=== PATIENT | female | born 1965 | race African-American/Black ===

== ENCOUNTER 2022-07-17 16:43 | Inpatient (IN) ==
[2022-07-17] MEDS ORDERED: BENZOCAINE/BUTAMBEN/TETRACAINE SPRAY 20 GM CAN TOP ONE (17:58)
[2022-07-17] MEDS ORDERED: CLINDAMYCIN INJ 900 MG/50 ML PREMIX IV ONE (18:12)
[2022-07-17] MEDS ORDERED: DESFLURANE 1 UNIT/15 MINUTE INH ONE ×2 (18:13→20:08)
[2022-07-17] MEDS ORDERED: fentaNYL 100 MCG/2 ML VIAL ONE (18:13)
[2022-07-17] MEDS ORDERED: LIDOCAINE 2% 5 ML VIAL ONE (18:13)
[2022-07-17] MEDS ORDERED: propofoL 200 MG/20 ML VIAL IV ONE (18:13)
[2022-07-17] MEDS ORDERED: MIDAZOLAM 2 MG/2 ML VIAL ONE ×2 (18:13→20:07)
[2022-07-17] MEDS ORDERED: ROCURONIUM 50 MG/5 ML VIAL IV ONE (18:13)
[2022-07-17] MEDS ORDERED: ePHEDrine 50 MG/ML VIAL ONE (19:38)
[2022-07-17] MEDS ORDERED: ONDANSETRON 4 MG/2 ML VIAL IV PRN (20:38)
[2022-07-17] MEDS ORDERED: PROMETHAZINE 25 MG/1 ML VIAL IM PRN (20:38)
[2022-07-17] MEDS ORDERED: PHENYLEPHRINE DRIP 40 MG/250 ML PREMIX IV PRN (20:43)
[2022-07-17] MEDS ORDERED: PHENYLEPHRINE DRIP 40 MG/250 ML PREMIX IV ONE (20:43)
[2022-07-17] MEDS ORDERED: LACTATED RINGERS 1,000 ML IV ONE (20:47)
[2022-07-17 21:21] LABS: ABG Base Excess -1.4 MMOL/L (-2.5-2.5); ABG HCO3 23.3 MMOL/L (20-26); ABG Oxygen Saturation 99.9 % (95-100); ABG PCO2 38.5 MM HG (35-48); ABG PH 7.389 (7.35-7.45); ABG TCO2 19.9 MMOL/L (23-27); Basophils % 0.4 % (0.0-0.8); Eosinophils % 0.1 % (0.00-10.9); Hematocrit 44.6 VOL% (35.7-47.0); Hemoglobin 14.3 GM/DL (12.0-16.0); Immature Granulocytes % 0.2 %; Immature Granulocytes Absolute 0.02 #; Lymphocytes # 1.7 10*3/uL (1.4-4.0); Lymphocytes % 17.1 % (21.3-54.2); Mean Corpuscular HGB Conc 32.1 GM/DL (32-36); Mean Corpuscular Volume 93.3 FL (87-102); Mean Platelet Volume 12.2 FL (9.6-12.0); Monocytes # 0.5 10*3/uL (0.11-0.8); Neutrophils % 77.2 % (38.7-73.9); Platelet Count 240 T/CUMM (130-400); Red Blood Count 4.78 MC/CUMM (3.8-5.5); Red Cell Distribution Width 14.3 % (9.3-17.3); White Blood Count 9.9 T/CUMM (4-12)
[2022-07-17] MEDS: HYDROmorphone 1 MG/1 ML SYRINGE IV PRN (21:25)
[2022-07-17] MEDS: PANTOPRAZOLE 40 MG VIAL IV SCH (21:32)
[2022-07-17] MEDS: ENOXAPARIN 40 MG/0.4 ML SYRINGE SUBCUT SCH (21:33)
[2022-07-17] MEDS: PIPERACILLIN/TAZOBACTAM 3,375 MG in SODIUM CHLORIDE 0.9% 100 ML IV SCH (21:34)
[2022-07-17 21:35] LABS: Bacteria,Urine Occasional /HPF (Few); Mucus,Urine Occasional /LPF (Occasional); Protein,Urine 100 mg/dL (Negative); RBC,Urine 5 /HPF (0-4); Squamous Epithelial Cell,Urine Many /HPF (0-10); Urine Appearance Clear (Clear); Urine Color Yellow (Yellow)
[2022-07-17 21:36] LABS: Bilirubin,Urine Negative (Negative); Blood, Urine Trace mg/dL (Negative); Glucose,Urine (UA) Negative (Negative); Ketones,Urine Negative (Negative); Nitrite,Urine Negative (Negative); Urine Urobilinogen 0.2 eU/dL (<2.0)
[2022-07-17 21:42] LABS: Albumin 3.2 G/DL (3.4-5.0); Bilirubin,Total 0.6 MG/DL (0.20-1.00); Calcium 9.3 MG/DL (8.5-10.1); Osmolality,Calculated 296.1 MOS/KG (273-304); Potassium 3.2 MMOL/L (3.5-5.1); Total Protein 7.9 G/DL (6.4-8.2)
[2022-07-17] MEDS: LACTATED RINGERS 1,000 ML IV SCH (22:05)
[2022-07-17] MEDS: POTASSIUM CHLORIDE RIDER 20 MEQ/100 ML PREMIX IV PRN (23:55)
[2022-07-18] MEDS ORDERED: LACTATED RINGERS 500 ML IV ONE ×2 (00:30→06:47)
[2022-07-18] MEDS: LACTATED RINGERS 1,000 ML IV SCH ×6 (00:34→20:37)
[2022-07-18] MEDS: POTASSIUM CHLORIDE RIDER 20 MEQ/100 ML PREMIX IV PRN ×2 (00:50→04:56)
[2022-07-18] MEDS: HYDROmorphone 1 MG/1 ML SYRINGE IV PRN ×2 (03:43→18:48)
[2022-07-18 04:07] LABS: ABG Base Excess -0.9 MMOL/L (-2.5-2.5); ABG HCO3 23.7 MMOL/L (20-26); ABG Oxygen Saturation 99.5 % (95-100); ABG PCO2 36.6 MM HG (35-48); ABG PH 7.411 (7.35-7.45); ABG TCO2 20.2 MMOL/L (23-27)
[2022-07-18 04:09] LABS: Basophils % 0.4 % (0.0-0.8); Eosinophils % 0.1 % (0.00-10.9); Hematocrit 40.3 VOL% (35.7-47.0); Hemoglobin 13.1 GM/DL (12.0-16.0); Immature Granulocytes % 0.1 %; Immature Granulocytes Absolute 0.01 #; Lymphocytes # 0.5 10*3/uL (1.4-4.0); Lymphocytes % 6.1 % (21.3-54.2); Mean Corpuscular HGB Conc 32.5 GM/DL (32-36); Mean Corpuscular Volume 92.6 FL (87-102); Mean Platelet Volume 12.2 FL (9.6-12.0); Monocytes # 0.9 10*3/uL (0.11-0.8); Monocytes % 10.7 % (1.7-12.7); Neutrophils % 82.6 % (38.7-73.9); Platelet Count 180 T/CUMM (130-400); Red Blood Count 4.35 MC/CUMM (3.8-5.5); Red Cell Distribution Width 14.3 % (9.3-17.3); White Blood Count 8.4 T/CUMM (4-12)
[2022-07-18 04:33] LABS: Band Neutrophils 6 % (0-10); Lymphocytes 8 % (20-55); Platelet Estimate Adequate; Total Cells Counted 100
[2022-07-18 04:34] LABS: Alanine Aminotransferase 14 U/L (13-56); Albumin 2.9 G/DL (3.4-5.0); Alkaline Phosphatase 58 U/L (45-117); Aspartate Amino Transferase 11 U/L (0-37); Blood Urea Nitrogen 43 MG/DL (7-18); Carbon Dioxide 25 MMOL/L (21-32); Chloride 109 MMOL/L (98-107); Glucose 176 MG/DL (74-106); Potassium 3.6 MMOL/L (3.5-5.1); Sodium 143 MMOL/L (136-145); Total Protein 7.1 G/DL (6.4-8.2)
[2022-07-18] MEDS: PIPERACILLIN/TAZOBACTAM 3,375 MG in SODIUM CHLORIDE 0.9% 100 ML IV SCH ×3 (04:57→20:21)
[2022-07-18] MEDS: INSULIN LISPRO 100 UNIT/ML SUBCUT SCH ×4 (05:00→17:16)
[2022-07-18] MEDS ORDERED: LACTATED RINGERS 1,000 ML IV ONE (08:18)
[2022-07-18] MEDS ORDERED: ROCURONIUM 50 MG/5 ML VIAL IV ONE ×2 (08:42→10:15)
[2022-07-18] MEDS ORDERED: PHENYLEPHRINE 1 MG/10 ML SYRINGE IV ONE (08:42)
[2022-07-18] MEDS ORDERED: MIDAZOLAM 2 MG/2 ML VIAL ONE ×2 (08:43→10:54)
[2022-07-18] MEDS ORDERED: SEVOFLURANE 1 UNIT/15 MINUTE INH ONE ×6 (10:15→10:44)
[2022-07-18] MEDS ORDERED: KETAMINE 500 MG/10 ML VIAL ONE (10:17)
[2022-07-18] MEDS ORDERED: propofoL 200 MG/20 ML VIAL IV ONE (10:18)
[2022-07-18] MEDS ORDERED: ePHEDrine 50 MG/ML VIAL ONE (10:19)
[2022-07-18] MEDS: ENOXAPARIN 40 MG/0.4 ML SYRINGE SUBCUT SCH (20:21)
[2022-07-18] MEDS: PANTOPRAZOLE 40 MG VIAL IV SCH (20:21)
[2022-07-19] MEDS: INSULIN LISPRO 100 UNIT/ML SUBCUT SCH ×5 (00:34→23:48)
[2022-07-19] MEDS: LACTATED RINGERS 1,000 ML IV SCH ×3 (01:24→13:46)
[2022-07-19 04:02] LABS: ABG Base Excess 1.2 MMOL/L (-2.5-2.5); ABG HCO3 25.5 MMOL/L (20-26); ABG Oxygen Saturation 99.4 % (95-100); ABG PCO2 39.8 MM HG (35-48); ABG PH 7.418 (7.35-7.45)
[2022-07-19 04:04] LABS: Basophils # 0.1 10*3/uL (0.0-0.2); Basophils % 0.4 % (0.0-0.8); Eosinophils % 0.2 % (0.00-10.9); Hematocrit 33.8 VOL% (35.7-47.0); Immature Granulocytes % 0.3 %; Immature Granulocytes Absolute 0.03 #; Lymphocytes # 1.9 10*3/uL (1.4-4.0); Lymphocytes % 16.1 % (21.3-54.2); Mean Corpuscular HGB Conc 32.5 GM/DL (32-36); Mean Corpuscular Volume 93.1 FL (87-102); Monocytes # 1.1 10*3/uL (0.11-0.8); Monocytes % 9.8 % (1.7-12.7); Neutrophils % 73.2 % (38.7-73.9); Platelet Count 156 T/CUMM (130-400); Red Blood Count 3.63 MC/CUMM (3.8-5.5); Red Cell Distribution Width 14.6 % (9.3-17.3); White Blood Count 11.5 T/CUMM (4-12)
[2022-07-19 04:22] LABS: Bilirubin,Total 0.4 MG/DL (0.20-1.00); Calcium 7.8 MG/DL (8.5-10.1); Potassium 3.6 MMOL/L (3.5-5.1); Total Protein 5.9 G/DL (6.4-8.2)
[2022-07-19 04:25] LABS: Band Neutrophils 14 % (0-10); Hypochromia Slight; Lymphocytes 10 % (20-55); Microcytosis Slight; Total Cells Counted 100
[2022-07-19] MEDS: PIPERACILLIN/TAZOBACTAM 3,375 MG in SODIUM CHLORIDE 0.9% 100 ML IV SCH ×2 (05:30→13:50)
[2022-07-19] MEDS: POTASSIUM CHLORIDE RIDER 20 MEQ/100 ML PREMIX IV PRN (05:30)
[2022-07-19] MEDS: PANTOPRAZOLE 40 MG VIAL IV SCH (20:53)
[2022-07-19] MEDS: CEFEPIME 1,000 MG in SODIUM CHLORIDE 0.9% 100 ML IV SCH (20:53)
[2022-07-19] MEDS: ENOXAPARIN 40 MG/0.4 ML SYRINGE SUBCUT SCH (20:53)
[2022-07-20] MEDS: CEFEPIME 1,000 MG in SODIUM CHLORIDE 0.9% 100 ML IV SCH ×4 (02:10→20:59)
[2022-07-20 03:58] LABS: ABG Base Excess 1.8 MMOL/L (-2.5-2.5); ABG Oxygen Saturation 99.4 % (95-100); ABG PCO2 39.9 MM HG (35-48); ABG PH 7.425 (7.35-7.45); ABG TCO2 23.5 MMOL/L (23-27)
[2022-07-20 04:05] LABS: Basophils % 0.2 % (0.0-0.8); Eosinophils # 0.1 10*3/uL (0.0-0.87); Eosinophils % 0.6 % (0.00-10.9); Hematocrit 33.5 VOL% (35.7-47.0); Hemoglobin 10.7 GM/DL (12.0-16.0); Immature Granulocytes % 0.4 %; Immature Granulocytes Absolute 0.05 #; Lymphocytes # 2.7 10*3/uL (1.4-4.0); Lymphocytes % 20.4 % (21.3-54.2); Mean Corpuscular HGB Conc 31.9 GM/DL (32-36); Mean Corpuscular Volume 94.6 FL (87-102); Mean Platelet Volume 12.2 FL (9.6-12.0); Monocytes % 7.5 % (1.7-12.7); Neutrophils % 70.9 % (38.7-73.9); Platelet Count 156 T/CUMM (130-400); Red Blood Count 3.54 MC/CUMM (3.8-5.5); Red Cell Distribution Width 14.3 % (9.3-17.3); White Blood Count 13.1 T/CUMM (4-12)
[2022-07-20 04:18] LABS: Bilirubin,Total 0.4 MG/DL (0.20-1.00); Osmolality,Calculated 287.1 MOS/KG (273-304); Potassium 3.5 MMOL/L (3.5-5.1)
[2022-07-20] MEDS: POTASSIUM CHLORIDE RIDER 20 MEQ/100 ML PREMIX IV PRN (05:48)
[2022-07-20] MEDS: INSULIN LISPRO 100 UNIT/ML SUBCUT SCH ×4 (05:58→23:40)
[2022-07-20] MEDS: POTASSIUM CHLORIDE RIDER 10 MEQ/100 ML PREMIX IV PRN (07:40)
[2022-07-20 10:47] LABS: ABG Base Excess 1.5 MMOL/L (-2.5-2.5); ABG HCO3 25.8 MMOL/L (20-26); ABG Oxygen Saturation 99.2 % (95-100); ABG PCO2 42.2 MM HG (35-48); ABG PH 7.405 (7.35-7.45); ABG TCO2 23.8 MMOL/L (23-27)
[2022-07-20] MEDS: HYDROmorphone 1 MG/1 ML SYRINGE IV PRN ×2 (11:06→18:38)
[2022-07-20] MEDS ORDERED: DEXMEDETOMIDINE 200 MCG in SODIUM CHLORIDE 0.9% 48 ML IV PRN (11:18)
[2022-07-20 12:58] LABS: Basophils % 0.3 % (0.0-0.8); Eosinophils # 0.1 10*3/uL (0.0-0.87); Eosinophils % 0.9 % (0.00-10.9); Hematocrit 32.9 VOL% (35.7-47.0); Hemoglobin 10.4 GM/DL (12.0-16.0); Immature Granulocytes % 0.4 %; Immature Granulocytes Absolute 0.05 #; Lymphocytes # 2.6 10*3/uL (1.4-4.0); Lymphocytes % 22.2 % (21.3-54.2); Mean Corpuscular HGB Conc 31.6 GM/DL (32-36); Mean Corpuscular Volume 94.8 FL (87-102); Monocytes # 1.2 10*3/uL (0.11-0.8); Monocytes % 10.3 % (1.7-12.7); Neutrophils % 65.9 % (38.7-73.9); Platelet Count 160 T/CUMM (130-400); Red Blood Count 3.47 MC/CUMM (3.8-5.5); Red Cell Distribution Width 14.2 % (9.3-17.3); White Blood Count 11.7 T/CUMM (4-12)
[2022-07-20] MEDS ORDERED: LACTATED RINGERS 1,000 ML IV ONE (13:05)
[2022-07-20] MEDS ORDERED: MIDAZOLAM 100 MG in SODIUM CHLORIDE 0.9% 80 ML IV PRN (13:07)
[2022-07-20 13:14] LABS: Potassium 3.8 MMOL/L (3.5-5.1); Risk Ratio 3.62; VLDL Cholesterol 19.6 MG/DL
[2022-07-20] MEDS: ENOXAPARIN 40 MG/0.4 ML SYRINGE SUBCUT SCH (20:59)
[2022-07-20] MEDS: PANTOPRAZOLE 40 MG VIAL IV SCH (20:59)
[2022-07-21] MEDS: CEFEPIME 1,000 MG in SODIUM CHLORIDE 0.9% 100 ML IV SCH ×3 (01:54→18:43)
[2022-07-21 03:39] LABS: ABG Base Excess -0.4 MMOL/L (-2.5-2.5); ABG HCO3 24.1 MMOL/L (20-26); ABG Oxygen Saturation 99.5 % (95-100); ABG PCO2 38.6 MM HG (35-48); ABG PH 7.404 (7.35-7.45); ABG TCO2 21.7 MMOL/L (23-27)
[2022-07-21 03:43] LABS: Basophils % 0.3 % (0.0-0.8); Eosinophils % 0.1 % (0.00-10.9); Hematocrit 34.5 VOL% (35.7-47.0); Hemoglobin 10.8 GM/DL (12.0-16.0); Immature Granulocytes % 0.5 %; Immature Granulocytes Absolute 0.05 #; Lymphocytes # 1.8 10*3/uL (1.4-4.0); Lymphocytes % 19.2 % (21.3-54.2); Mean Corpuscular HGB Conc 31.3 GM/DL (32-36); Mean Platelet Volume 11.9 FL (9.6-12.0); Monocytes # 1.1 10*3/uL (0.11-0.8); Monocytes % 11.9 % (1.7-12.7); Platelet Count 168 T/CUMM (130-400); Red Blood Count 3.63 MC/CUMM (3.8-5.5); Red Cell Distribution Width 13.9 % (9.3-17.3); White Blood Count 9.5 T/CUMM (4-12)
[2022-07-21 04:02] LABS: Calcium 8.5 MG/DL (8.5-10.1); Osmolality,Calculated 289.8 MOS/KG (273-304); Phosphorous 3.1 MG/DL (2.5-4.9); Potassium 3.9 MMOL/L (3.5-5.1)
[2022-07-21 04:27] LABS: Albumin 1.9 G/DL (3.4-5.0); Bilirubin,Total 0.7 MG/DL (0.20-1.00); Calcium 8.5 MG/DL (8.5-10.1); Osmolality,Calculated 290.7 MOS/KG (273-304); Potassium 3.9 MMOL/L (3.5-5.1); Total Protein 6.7 G/DL (6.4-8.2)
[2022-07-21] MEDS: INSULIN LISPRO 100 UNIT/ML SUBCUT SCH ×3 (05:41→18:19)
[2022-07-21] MEDS: HYDROmorphone 1 MG/1 ML SYRINGE IV PRN ×2 (14:05→22:30)
[2022-07-21] MEDS: PANTOPRAZOLE 40 MG VIAL IV SCH (21:15)
[2022-07-21] MEDS: ENOXAPARIN 40 MG/0.4 ML SYRINGE SUBCUT SCH (21:15)
[2022-07-22] MEDS: INSULIN LISPRO 100 UNIT/ML SUBCUT SCH ×4 (00:30→17:22)
[2022-07-22] MEDS: CEFEPIME 1,000 MG in SODIUM CHLORIDE 0.9% 100 ML IV SCH ×4 (00:50→17:26)
[2022-07-22 03:46] LABS: ABG Base Excess 1.2 MMOL/L (-2.5-2.5); ABG HCO3 25.5 MMOL/L (20-26); ABG Oxygen Saturation 98.9 % (95-100); ABG PCO2 43.9 MM HG (35-48); ABG PH 7.388 (7.35-7.45); ABG TCO2 23.7 MMOL/L (23-27)
[2022-07-22 03:47] LABS: Basophils % 0.4 % (0.0-0.8); Eosinophils # 0.1 10*3/uL (0.0-0.87); Eosinophils % 0.9 % (0.00-10.9); Hematocrit 34.8 VOL% (35.7-47.0); Hemoglobin 10.9 GM/DL (12.0-16.0); Immature Granulocytes % 0.7 %; Immature Granulocytes Absolute 0.07 #; Lymphocytes # 2.2 10*3/uL (1.4-4.0); Lymphocytes % 20.8 % (21.3-54.2); Mean Corpuscular HGB Conc 31.3 GM/DL (32-36); Mean Corpuscular Volume 95.9 FL (87-102); Mean Platelet Volume 11.9 FL (9.6-12.0); Monocytes # 1.8 10*3/uL (0.11-0.8); Monocytes % 17.5 % (1.7-12.7); Neutrophils % 59.7 % (38.7-73.9); Platelet Count 181 T/CUMM (130-400); Red Blood Count 3.63 MC/CUMM (3.8-5.5); Red Cell Distribution Width 13.8 % (9.3-17.3); White Blood Count 10.4 T/CUMM (4-12)
[2022-07-22 04:00] LABS: Calcium 8.4 MG/DL (8.5-10.1); Osmolality,Calculated 294.4 MOS/KG (273-304)
[2022-07-22] MEDS: SODIUM CHLORIDE 0.45% 1,000 ML IV SCH ×3 (10:11→20:11)
[2022-07-22] MEDS: PANTOPRAZOLE 40 MG VIAL IV SCH (21:03)
[2022-07-22] MEDS: ENOXAPARIN 40 MG/0.4 ML SYRINGE SUBCUT SCH (21:04)
[2022-07-23] MEDS: INSULIN LISPRO 100 UNIT/ML SUBCUT SCH ×4 (01:55→18:26)
[2022-07-23] MEDS: HYDROmorphone 1 MG/1 ML SYRINGE IV PRN (02:23)
[2022-07-23] MEDS: CEFEPIME 1,000 MG in SODIUM CHLORIDE 0.9% 100 ML IV SCH ×2 (02:24→05:28)
[2022-07-23 06:02] LABS: Basophils # 0.1 10*3/uL (0.0-0.2); Basophils % 0.5 % (0.0-0.8); Eosinophils # 0.2 10*3/uL (0.0-0.87); Eosinophils % 2.2 % (0.00-10.9); Hematocrit 32.3 VOL% (35.7-47.0); Hemoglobin 10.1 GM/DL (12.0-16.0); Immature Granulocytes Absolute 0.11 #; Lymphocytes # 3.3 10*3/uL (1.4-4.0); Lymphocytes % 30.5 % (21.3-54.2); Mean Corpuscular HGB Conc 31.3 GM/DL (32-36); Mean Corpuscular Volume 97.3 FL (87-102); Mean Platelet Volume 11.7 FL (9.6-12.0); Monocytes # 1.6 10*3/uL (0.11-0.8); Monocytes % 14.9 % (1.7-12.7); Neutrophils % 50.9 % (38.7-73.9); Platelet Count 207 T/CUMM (130-400); Red Blood Count 3.32 MC/CUMM (3.8-5.5); Red Cell Distribution Width 13.9 % (9.3-17.3); White Blood Count 10.9 T/CUMM (4-12)
[2022-07-23 06:20] LABS: Calcium 8.4 MG/DL (8.5-10.1); Osmolality,Calculated 289.6 MOS/KG (273-304); Potassium 3.5 MMOL/L (3.5-5.1)
[2022-07-23] MEDS: SODIUM CHLORIDE 0.45% 1,000 ML IV SCH ×2 (06:25→17:10)
[2022-07-23] MEDS ORDERED: DEXTROSE 10% 250 ML BAG IV PRN (06:32)
[2022-07-23] MEDS ORDERED: GLUCAGON 1 MG VIAL IV PRN (06:32)
[2022-07-23] MEDS ORDERED: MULTIVITAMIN INJ 10 ML in AMINO ACIDS/DEXT/LYTES 5-15% 2,000 ML IV SCH (17:00)
[2022-07-23] MEDS ORDERED: DEXTROSE 10% 1,000 ML IV PRN (17:00)
[2022-07-23] MEDS: ENOXAPARIN 40 MG/0.4 ML SYRINGE SUBCUT SCH (20:24)
[2022-07-23] MEDS: PANTOPRAZOLE 40 MG VIAL IV SCH (20:25)
[2022-07-24] MEDS: INSULIN LISPRO 100 UNIT/ML SUBCUT SCH ×5 (00:48→23:28)
[2022-07-24] MEDS: HYDROmorphone 1 MG/1 ML SYRINGE IV PRN ×2 (00:55→16:24)
[2022-07-24] MEDS: SODIUM CHLORIDE 0.45% 1,000 ML IV SCH ×2 (04:24→22:14)
[2022-07-24 06:21] LABS: Basophils % 0.4 % (0.0-0.8); Eosinophils # 0.2 10*3/uL (0.0-0.87); Eosinophils % 2.2 % (0.00-10.9); Hematocrit 29.5 VOL% (35.7-47.0); Hemoglobin 9.3 GM/DL (12.0-16.0); Immature Granulocytes % 1.2 %; Immature Granulocytes Absolute 0.12 #; Lymphocytes # 2.8 10*3/uL (1.4-4.0); Mean Corpuscular HGB Conc 31.5 GM/DL (32-36); Mean Corpuscular Volume 96.7 FL (87-102); Mean Platelet Volume 11.5 FL (9.6-12.0); Monocytes # 1.4 10*3/uL (0.11-0.8); Monocytes % 13.4 % (1.7-12.7); Neutrophils % 55.8 % (38.7-73.9); Platelet Count 217 T/CUMM (130-400); Red Blood Count 3.05 MC/CUMM (3.8-5.5); Red Cell Distribution Width 13.6 % (9.3-17.3); White Blood Count 10.4 T/CUMM (4-12)
[2022-07-24 06:43] LABS: Calcium 8.3 MG/DL (8.5-10.1); Osmolality,Calculated 286.8 MOS/KG (273-304)
[2022-07-24] MEDS ORDERED: MAGNESIUM SULF RIDER 2 GM/50 ML PREMIX IV PRN (07:06)
[2022-07-24] MEDS ORDERED: MAGNESIUM SULF RIDER 4 GM/100 ML PREMIX IV PRN (07:06)
[2022-07-24] MEDS ORDERED: PHENOL 1.4% THROAT SPRAY 177 ML BOTTLE PO PRN (10:42)
[2022-07-24] MEDS: POTASSIUM CHLORIDE RIDER 20 MEQ/100 ML PREMIX IV PRN ×2 (12:51→16:10)
[2022-07-24] MEDS ORDERED: MULTIVITAMIN INJ 10 ML in AMINO ACIDS/DEXT/LYTES 5-15% 2,000 ML IV SCH (17:00)
[2022-07-24] MEDS: POTASSIUM CHLORIDE RIDER 10 MEQ/100 ML PREMIX IV PRN (18:10)
[2022-07-24] MEDS: PANTOPRAZOLE 40 MG VIAL IV SCH (20:38)
[2022-07-24] MEDS: ENOXAPARIN 40 MG/0.4 ML SYRINGE SUBCUT SCH (20:38)
[2022-07-24] MEDS: MORPHINE 2 MG/1 ML SYRINGE IV PRN (23:22)
[2022-07-25 05:06] LABS: Basophils % 0.3 % (0.0-0.8); Eosinophils # 0.3 10*3/uL (0.0-0.87); Eosinophils % 2.4 % (0.00-10.9); Hematocrit 30.1 VOL% (35.7-47.0); Hemoglobin 9.4 GM/DL (12.0-16.0); Immature Granulocytes % 1.2 %; Immature Granulocytes Absolute 0.14 #; Lymphocytes # 2.8 10*3/uL (1.4-4.0); Lymphocytes % 24.4 % (21.3-54.2); Mean Corpuscular HGB Conc 31.2 GM/DL (32-36); Mean Corpuscular Volume 97.1 FL (87-102); Monocytes # 1.3 10*3/uL (0.11-0.8); Monocytes % 11.4 % (1.7-12.7); Neutrophils % 60.3 % (38.7-73.9); Platelet Count 245 T/CUMM (130-400); Red Cell Distribution Width 13.2 % (9.3-17.3); White Blood Count 11.5 T/CUMM (4-12)
[2022-07-25 05:22] LABS: Calcium 8.1 MG/DL (8.5-10.1); Osmolality,Calculated 281.4 MOS/KG (273-304); Potassium 3.6 MMOL/L (3.5-5.1)
[2022-07-25] MEDS: MORPHINE 2 MG/1 ML SYRINGE IV PRN (05:23)
[2022-07-25] MEDS: INSULIN LISPRO 100 UNIT/ML SUBCUT SCH ×3 (06:21→18:35)
[2022-07-25] MEDS: SODIUM CHLORIDE 0.45% 1,000 ML IV SCH ×2 (08:56→21:28)
[2022-07-25] MEDS ORDERED: MULTIVITAMIN INJ 10 ML in AMINO ACIDS/DEXT/LYTES 5-15% 2,000 ML IV SCH (17:00)
[2022-07-25] MEDS: PANTOPRAZOLE 40 MG VIAL IV SCH (21:26)
[2022-07-25] MEDS: ENOXAPARIN 40 MG/0.4 ML SYRINGE SUBCUT SCH (21:27)
[2022-07-26] MEDS: INSULIN LISPRO 100 UNIT/ML SUBCUT SCH ×4 (00:49→17:02)
[2022-07-26 05:03] LABS: Basophils # 0.1 10*3/uL (0.0-0.2); Basophils % 0.4 % (0.0-0.8); Eosinophils # 0.2 10*3/uL (0.0-0.87); Eosinophils % 1.9 % (0.00-10.9); Hematocrit 28.6 VOL% (35.7-47.0); Hemoglobin 9.1 GM/DL (12.0-16.0); Immature Granulocytes % 1.5 %; Immature Granulocytes Absolute 0.19 #; Lymphocytes # 2.7 10*3/uL (1.4-4.0); Lymphocytes % 21.3 % (21.3-54.2); Mean Corpuscular HGB Conc 31.8 GM/DL (32-36); Mean Corpuscular Volume 96.3 FL (87-102); Mean Platelet Volume 10.8 FL (9.6-12.0); Monocytes # 1.1 10*3/uL (0.11-0.8); Monocytes % 8.8 % (1.7-12.7); Neutrophils % 66.1 % (38.7-73.9); Platelet Count 277 T/CUMM (130-400); Red Blood Count 2.97 MC/CUMM (3.8-5.5); Red Cell Distribution Width 13.2 % (9.3-17.3); White Blood Count 12.6 T/CUMM (4-12)
[2022-07-26 05:30] LABS: Alanine Aminotransferase 24 U/L (13-56); Albumin 1.9 G/DL (3.4-5.0); Alkaline Phosphatase 77 U/L (45-117); Aspartate Amino Transferase 15 U/L (0-37); Bilirubin,Total < 0.39 MG/DL (0.20-1.00); Blood Urea Nitrogen 11 MG/DL (7-18); Calcium 8.3 MG/DL (8.5-10.1); Carbon Dioxide 30 MMOL/L (21-32); Chloride 107 MMOL/L (98-107); Glucose 150 MG/DL (74-106); Osmolality,Calculated 284.1 MOS/KG (273-304); Potassium 3.3 MMOL/L (3.5-5.1); Sodium 142 MMOL/L (136-145); Total Protein 6.3 G/DL (6.4-8.2)
[2022-07-26] MEDS ORDERED: ALBUTEROL 2.5 MG/3 ML NEB RESP TX PRN (07:29)
[2022-07-26] MEDS ORDERED: ALBUTEROL 0.63 MG/3 ML NEB RESP TX PRN (07:29)
[2022-07-26] MEDS: POTASSIUM CHLORIDE RIDER 10 MEQ/100 ML PREMIX IV PRN ×2 (08:06→09:06)
[2022-07-26] MEDS ORDERED: PANTOPRAZOLE 40 MG TABLET PO SCH (09:00)
[2022-07-26] MEDS ORDERED: POTASSIUM CHLORIDE 20 MEQ TABLET PO ONE (09:04)
[2022-07-26] MEDS ORDERED: DOCUSATE SODIUM 100 MG CAPSULE PO PRN (14:44)
[2022-07-26] MEDS: lisinopriL 20 MG TABLET PO SCH (16:24)
[2022-07-26] MEDS ORDERED: AMINO ACIDS/DEXT/LYTES 5-15% 2,000 ML IV SCH (17:00)
[2022-07-26] MEDS: MONTELUKAST 10 MG TABLET PO SCH (21:57)
[2022-07-26] MEDS: SIMVASTATIN 10 MG TABLET PO SCH (21:57)
[2022-07-26] MEDS: PANTOPRAZOLE 40 MG VIAL IV SCH (21:57)
[2022-07-26] MEDS: ENOXAPARIN 40 MG/0.4 ML SYRINGE SUBCUT SCH (22:04)
[2022-07-27] MEDS: INSULIN LISPRO 100 UNIT/ML SUBCUT SCH ×4 (00:25→18:00)
[2022-07-27 04:42] LABS: Basophils # 0.1 10*3/uL (0.0-0.2); Basophils % 0.5 % (0.0-0.8); Eosinophils # 0.2 10*3/uL (0.0-0.87); Eosinophils % 1.6 % (0.00-10.9); Hematocrit 28.5 VOL% (35.7-47.0); Immature Granulocytes % 1.9 %; Immature Granulocytes Absolute 0.29 #; Lymphocytes # 3.8 10*3/uL (1.4-4.0); Lymphocytes % 24.8 % (21.3-54.2); Mean Corpuscular HGB Conc 31.6 GM/DL (32-36); Mean Corpuscular Volume 95.3 FL (87-102); Mean Platelet Volume 10.3 FL (9.6-12.0); Monocytes % 6.4 % (1.7-12.7); Neutrophils % 64.8 % (38.7-73.9); Platelet Count 312 T/CUMM (130-400); Red Blood Count 2.99 MC/CUMM (3.8-5.5); Red Cell Distribution Width 13.2 % (9.3-17.3); White Blood Count 15.3 T/CUMM (4-12)
[2022-07-27 05:08] LABS: Alanine Aminotransferase 22 U/L (13-56); Alkaline Phosphatase 77 U/L (45-117); Aspartate Amino Transferase 12 U/L (0-37); Bilirubin,Total < 0.39 MG/DL (0.20-1.00); Blood Urea Nitrogen 9 MG/DL (7-18); Calcium 8.4 MG/DL (8.5-10.1); Carbon Dioxide 31 MMOL/L (21-32); Chloride 106 MMOL/L (98-107); Glucose 98 MG/DL (74-106); Osmolality,Calculated 281.1 MOS/KG (273-304); Potassium 3.1 MMOL/L (3.5-5.1); Sodium 142 MMOL/L (136-145); Total Protein 6.4 G/DL (6.4-8.2)
[2022-07-27] MEDS ORDERED: PANTOPRAZOLE 40 MG TABLET PO SCH (09:00)
[2022-07-27] MEDS: POTASSIUM CHLORIDE 20 MEQ TABLET PO SCH ×2 (09:01→21:50)
[2022-07-27] MEDS: lisinopriL 20 MG TABLET PO SCH (09:01)
[2022-07-27] MEDS: FERROUS SULFATE 325 MG TABLET PO SCH (09:01)
[2022-07-27] MEDS: ASCORBIC ACID 500 MG TABLET PO SCH (09:01)
[2022-07-27] MEDS: SODIUM CHLORIDE 0.45% 1,000 ML IV SCH ×2 (15:17→21:56)
[2022-07-27] MEDS: MONTELUKAST 10 MG TABLET PO SCH (21:49)
[2022-07-27] MEDS: SIMVASTATIN 10 MG TABLET PO SCH (21:50)
[2022-07-27] MEDS: PANTOPRAZOLE 40 MG VIAL IV SCH (21:59)
[2022-07-27] MEDS: ENOXAPARIN 40 MG/0.4 ML SYRINGE SUBCUT SCH (21:59)
[2022-07-28] MEDS: INSULIN LISPRO 100 UNIT/ML SUBCUT SCH ×4 (00:18→17:21)
[2022-07-28 05:12] LABS: Basophils # 0.1 10*3/uL (0.0-0.2); Basophils % 0.5 % (0.0-0.8); Eosinophils # 0.2 10*3/uL (0.0-0.87); Eosinophils % 1.3 % (0.00-10.9); Hematocrit 28.5 VOL% (35.7-47.0); Hemoglobin 9.1 GM/DL (12.0-16.0); Immature Granulocytes % 1.5 %; Immature Granulocytes Absolute 0.23 #; Lymphocytes % 19.4 % (21.3-54.2); Mean Corpuscular HGB Conc 31.9 GM/DL (32-36); Mean Platelet Volume 10.9 FL (9.6-12.0); Monocytes % 6.3 % (1.7-12.7); Platelet Count 332 T/CUMM (130-400); Red Blood Count 2.97 MC/CUMM (3.8-5.5); Red Cell Distribution Width 13.3 % (9.3-17.3); White Blood Count 15.5 T/CUMM (4-12)
[2022-07-28 05:28] LABS: Calcium 8.4 MG/DL (8.5-10.1); Osmolality,Calculated 280.1 MOS/KG (273-304); Potassium 3.4 MMOL/L (3.5-5.1)
[2022-07-28 08:38] LABS: Basophils # 0.1 10*3/uL (0.0-0.2); Basophils % 0.3 % (0.0-0.8); Eosinophils # 0.2 10*3/uL (0.0-0.87); Eosinophils % 0.8 % (0.00-10.9); Hematocrit 30.7 VOL% (35.7-47.0); Immature Granulocytes % 1.2 %; Immature Granulocytes Absolute 0.21 #; Lymphocytes # 3.3 10*3/uL (1.4-4.0); Lymphocytes % 18.2 % (21.3-54.2); Mean Corpuscular HGB Conc 32.6 GM/DL (32-36); Mean Platelet Volume 10.3 FL (9.6-12.0); Monocytes # 1.1 10*3/uL (0.11-0.8); Monocytes % 6.2 % (1.7-12.7); Neutrophils % 73.3 % (38.7-73.9); Platelet Count 332 T/CUMM (130-400); Red Cell Distribution Width 13.4 % (9.3-17.3); White Blood Count 17.9 T/CUMM (4-12)
[2022-07-28] MEDS: lisinopriL 20 MG TABLET PO SCH (08:49)
[2022-07-28] MEDS: POTASSIUM CHLORIDE 20 MEQ TABLET PO SCH ×2 (08:49→21:39)
[2022-07-28] MEDS: ASCORBIC ACID 500 MG TABLET PO SCH (08:49)
[2022-07-28] MEDS: FERROUS SULFATE 325 MG TABLET PO SCH (08:49)
[2022-07-28 08:59] LABS: Calcium 8.4 MG/DL (8.5-10.1); Potassium 3.7 MMOL/L (3.5-5.1)
[2022-07-28] MEDS: CEFUROXIME 500 MG TABLET PO SCH (16:13)
[2022-07-28] MEDS: PANTOPRAZOLE 40 MG VIAL IV SCH (21:39)
[2022-07-28] MEDS: SIMVASTATIN 10 MG TABLET PO SCH (21:39)
[2022-07-28] MEDS: MONTELUKAST 10 MG TABLET PO SCH (21:39)
[2022-07-28] MEDS: ENOXAPARIN 40 MG/0.4 ML SYRINGE SUBCUT SCH (21:39)
[2022-07-29] MEDS: INSULIN LISPRO 100 UNIT/ML SUBCUT SCH ×3 (01:06→12:37)
[2022-07-29 06:12] LABS: Calcium 8.4 MG/DL (8.5-10.1); Osmolality,Calculated 279.3 MOS/KG (273-304); Potassium 3.7 MMOL/L (3.5-5.1)
[2022-07-29 06:13] LABS: Basophils % 0.3 % (0.0-0.8); Eosinophils # 0.2 10*3/uL (0.0-0.87); Eosinophils % 1.3 % (0.00-10.9); Hematocrit 27.5 VOL% (35.7-47.0); Hemoglobin 8.6 GM/DL (12.0-16.0); Immature Granulocytes % 1.2 %; Immature Granulocytes Absolute 0.17 #; Lymphocytes # 2.7 10*3/uL (1.4-4.0); Mean Corpuscular HGB Conc 31.3 GM/DL (32-36); Mean Corpuscular Volume 96.5 FL (87-102); Mean Platelet Volume 10.5 FL (9.6-12.0); Monocytes # 1.1 10*3/uL (0.11-0.8); Monocytes % 7.8 % (1.7-12.7); Neutrophils % 69.4 % (38.7-73.9); Platelet Count 315 T/CUMM (130-400); Red Blood Count 2.85 MC/CUMM (3.8-5.5); Red Cell Distribution Width 13.7 % (9.3-17.3); White Blood Count 13.7 T/CUMM (4-12)
[2022-07-29] MEDS: CEFUROXIME 500 MG TABLET PO SCH (08:27)
[2022-07-29] MEDS: FERROUS SULFATE 325 MG TABLET PO SCH (08:27)
[2022-07-29] MEDS: POTASSIUM CHLORIDE 20 MEQ TABLET PO SCH (08:28)
[2022-07-29] MEDS: ASCORBIC ACID 500 MG TABLET PO SCH (08:28)
[2022-07-29] MEDS: lisinopriL 20 MG TABLET PO SCH (08:28)
[2022-07-29 11:58] VITALS: BP 122/68
== END 2022-07-29 13:00 | disposition home health service (06) | DRG 230 ==
LOC: EDUNIT# → EDBD → N.ED 16:43 → N.ICU 20:24 → N.3E 07-22 17:15
PROVIDERS: ADMIT Surgery; ATTEND Surgery